=== PATIENT | female | born 1980 | race Caucasian/White ===

== ENCOUNTER 2018-03-12 18:14 | Emergency (ER) | payer OTHER ==
[~2018-03-12] VITALS: Ht 170.2 cm; Wt 75.0 kg
[2018-03-12 18:21] VITALS: BP 133/87
[2018-03-13 10:51] LABS: HIV ANTIBODY 1&2 RAPID NON-REACTIVE (Neg)
[2018-03-16 05:25] LABS: HEP B CORE AB, IGM Negative (Negative); HEP B CORE AB, TOT Negative (Negative); HEPATITIS C ANTIBODY <0.1 s/co ratio (0.0-0.9)
== END 2018-03-12 20:54 | disposition home or self-care (01) ==
LOC: ER 18:15
DX: T14.8XXA Other injury of unspecified body region, initial encounter (principal); Z77.21 Contact with and (suspected) exposure to potentially hazardous body fluids; Z99.2 Dependence on renal dialysis; W46.0XXA Contact with hypodermic needle, initial encounter; Y93.89 Activity, other specified; Y92.89 Other specified places as the place of occurrence of the external cause; Y99.8 Other external cause status
CPT/HCPCS: 36415; 86703; 86704; 86705; 86706; 86803; 99284